=== PATIENT | female | born 1980 | race Caucasian/White ===

== ENCOUNTER 2017-05-25 11:22 | Inpatient (IN) | payer BC ==
[~2017-05-25] VITALS: Ht 154.9 cm; Wt 101.4 kg
--- NOTE | ~2017-05-25 | DS ---
PATIENT'S NAME: ADA HERNANDEZ [facility] AGE: 37 Y [address] ROOM: [place] [address] LOCATION: GOBS ADMIT DATE: 05/25/2017 Discharge Summary DISCHARGE DATE: 05/28/2017 FAMILY PHYSICIAN: Lucila Durham MD ATTENDING PHYSICIAN: Elsie Garcia DISCHARGE DIAGNOSES: 1. Intrauterine at 36 weeks. 2. Twins. 3. Preeclampsia. PROCEDURES: Spontaneous vaginal delivery x2 with the second-degree laceration, magnesium sulphate prophylaxis. REASON FOR ADMISSION: This is a patient who presents at 35 weeks 6 days, vertex-vertex with preeclampsia in the office. She was brought to the Labor and Delivery for induction. We gave her Celestone in the morning and then brought her to Labor and Delivery. She had Pitocin for induction. She went on and delivered by spontaneous vaginal delivery x2. She delivered twin A baby girl 5 pounds 2 ounces and then the second baby girl 3 pounds 14 ounces. Both babies went to the NICU. Following her procedure, her labs remained stable. She stayed on the magnesium sulphate for 1 day and then the patient went home on the second day following vaginal delivery. The patient will follow up with Dr. Garcia in 6 weeks' time. I will send her home on Motrin and Percocet for pain. MD JAYDE NUÑEZP/kiaral /[id number] d: 06/10/17 0558 t: 07/06/17 0857, DISCHARGE SUMMARY
--- NOTE | ~2017-05-25 | OR ---
PATIENT'S NAME: ADA HERNANDEZ [facility] AGE: 37 Y [address] ROOM: [address] [address] LOCATION: GOBS ADMIT DATE: 05/25/2017 OR/Procedure Report DISCHARGE DATE: FAMILY PHYSICIAN: Lucila Durham MD ATTENDING PHYSICIAN: Elsie Garcia SURGEON: Elsie Garcia MD FIELD INSTALLATION TECHNICIAN: DATE OF PROCEDURE: 05/26/2017 HISTORY OF PRESENT ILLNESS: This is a 37-year-old 4, para 2-0-0-2 who presents with a twin gestation due 06/23/2017. She presents at 35 weeks, 6 days with preeclampsia diagnosed in the office. I had given her one dose of Celestone in the morning, brought her to Labor and Delivery, and most of her pressures were 150s to 160s/70s to 90s. Therefore, decision was made to just go ahead and induce, she was 2 cm, 50%, -2 station. DETAILS OF THE PROCEDURE: Pitocin was begun and reached a maximum of 13 milliunits per minute. She progressed to 4 cm. She was on magnesium 4 g bolus and 2 g an hour. After the labor epidural, she had lower blood pressures for her and mostly twin B was affected with some variables and some late decelerations. Once the blood pressure was corrected, heart tones became reassuring again. The Pitocin was stopped for awhile. She then had Pitocin restarted and again reached a maximum of 9 milliunits per minute. When she got to 4 cm, -2 station, assisted rupture membranes of twin A were performed. She progressed on to complete with stable heart tones for both babies. She began pushing and delivered twin A over a second-degree laceration. Shoulders and body were easily delivered. Baby girl was placed on maternal abdomen and her short cord was doubly clamped and cut. She weighed 5 pounds, 2 ounces. Twin B is coming down vertex so I did bladder rest through a few contractions as the vertex was still high. heart tones showed minimal variability for twin B and some variable decelerations with minimal variability, but once the head was down to a safe spot, I did perform assisted rupture of membranes and she only pushed through a couple of contractions at that point. She pushed and delivered spontaneously. She delivered the vertex over the second-degree laceration. Shoulders and body are easily delivered. Baby girl, has a short cord, but it was placed temporarily on the maternal abdomen. Cord was doubly clamped and cut and she is handed off to the warmer. She weighed 3 pounds, 14 ounces. She was taken back to the NICU along with her sister for observation. Cord blood samples were collected and I collected an arterial cord pH on twin B 7.12 with the pH and base excess -13. Both have a 3-vessel cord. The placenta was delivered spontaneously and intact. Twin B's placenta is obviously smaller. The placentas were fused and there is an accessory lobe for twin B. I did a manual exploration of the uterus and felt to have no more membranes or placenta tissue. The uterus was clamping down nicely with PATIENT'S NAME: ADA HERNANDEZ [facility] AGE: 37 Y [address] ROOM: [place] [address] LOCATION: [facility] ADMIT DATE: 05/25/2017 OR/Procedure Report DISCHARGE DATE: FAMILY PHYSICIAN: Lucila Durham MD ATTENDING PHYSICIAN: Elsie Garcia. Cervix and vagina are intact. The second-degree lacerations was repaired in the usual fashion with 2-0 chromic. The patient tolerated the procedure well. She is doing well in recovery and her babies are being observed in the NICU. MD ELHAM NUÑEZ/marianne /[id number] d: 05/26/17 0525 t: 05/27/17 0402, OPERATIVE SUMMARY
[2017-05-25 12:25] LABS: ALBUMIN 2.4 gm/dL (3.5-5.0); ANION GAP 11.7 (10.0-19.0); CALCIUM 8.7 mg/dL (8.5-10.5); CREATININE 0.6 mg/dL (0.5-1.1); POTASSIUM 3.7 mMol/L (3.7-5.1); TOTAL PROTEIN 6.7 g/dL (6.0-8.4)
[2017-05-25 12:26] LABS: TOTAL BILIRUBIN 0.5 mg/dL (0.0-1.5)
[2017-05-25 12:27] LABS: BASOPHIL % 0.1 %; EOSINOPHIL % 0.3 %; HEMATOCRIT 37.7 % (33.0-46.0); HEMOGLOBIN 12.4 g/dL (11.0-15.0); IMMATURE GRANULOCYTE % 0.5 %; LYMPHOCYTE # 1.1 K/uL (0.8-4.0); LYMPHOCYTE % 12.5 %; MCH 28.6 pg (27.0-34.0); MCHC 32.9 gm/dL (32.0-36.5); MCV 86.9 fl (83.0-98.0); MONOCYTE # 0.5 K/uL (0.0-1.0); MPV 9.6 fl (9.4-12.4); NEUTROPHIL # (ANC) 7.1 K/uL (1.8-7.8); NEUTROPHIL % 80.6 %; NRBC % 0 /100WBC (0-0.00); RBC 4.34 M/uL (3.50-5.50); RDW-CV 13.1 % (11.9-14.6); WBC 8.9 K/uL (4.0-11.0)
[2017-05-25 12:31] LABS: PLATELET COUNT 307 K/uL (150-450)
[2017-05-25] MEDS ORDERED: PRENATAL 1+1)(P1 TAB PO (12:34)
[2017-05-25] MEDS ORDERED: ZANTAC (NON-FO150 MG PO (12:35)
[2017-05-25] MEDS ORDERED: FOLIC ACID1 MG PO (12:35)
[2017-05-25] MEDS ORDERED: OSCAL500 MG (12:36)
[2017-05-25] MEDS ORDERED: CRANBERRY200 MG (12:37)
--- NOTE | 2017-05-25 17:19 | NUR ---
05/25/17 I&0 Inserted under Taryn Hollis Rn name in computer and was inserted by Leander Potter pts Rn post acute care nurse.
--- NOTE | 2017-05-25 18:00 | NUR ---
05/25/17: Bp's 140's/70's-180's/80's. Iv Magnesium started @ 1502,Bilateral patellar reflexes 2+.RESP 17-20. afeb. Twin fhr's wnl. Fhr accels w/ both ltv moderate. Iv PItocin started and will be on 11 mu/min @ 1815. Platelets 300's. Will want labor epidural. 3 cms/60/-2. Twin A vertex less ballotable.
[2017-05-26 04:00] LABS: BICARBONATE 16.8 mmol/L (18.0-23.0); PCO2 52 mmHg (35-45); PO2 17 mmHg (80-90)
--- NOTE | 2017-05-26 14:54 | NUR ---
Met with mom at bedside today. Introduced myself and explained my role with the CM department. Let mom know that I also cover the NICU so I will be following the babies while they are there. Mom states they have all the necessary items for the twins at home. She has two other children and they are going to spend time at the grandparents until the twins are discharged. Mom will likely discharge on Monday. Room at the [facility] was reserved with Rosa in [facility] Admissions starting on MondayMay 28 through June 05. No other needs for the family at this time. Will continue to follow and offer supports as needed.
--- NOTE | 2017-05-27 04:53 | NUR ---
Significant Event: Mag off at 0300, IV saline locked. Breast pumped last at 0300; to NICU per W/C. Motrin last at 2200; tylenol last at 0400 Follow up:
[2017-05-27 05:18] LABS: BASOPHIL % 0.2 %; EOSINOPHIL # 0.1 K/uL (0.0-0.5); EOSINOPHIL % 0.5 %; HEMOGLOBIN 9.1 g/dL (11.0-15.0); IMMATURE GRANULOCYTE # 0.1 K/uL (0.0-0.3); IMMATURE GRANULOCYTE % 0.6 %; LYMPHOCYTE # 2.3 K/uL (0.8-4.0); LYMPHOCYTE % 18.3 %; MCV 87.7 fl (83.0-98.0); MONOCYTE # 1.1 K/uL (0.0-1.0); MPV 9.6 fl (9.4-12.4); NEUTROPHIL # (ANC) 8.8 K/uL (1.8-7.8); NEUTROPHIL % 71.4 %; NRBC % 0 /100WBC (0-0.00); RDW-CV 13.4 % (11.9-14.6); WBC 12.3 K/uL (4.0-11.0)
[2017-05-27 05:23] LABS: HEMATOCRIT 27.1 % (33.0-46.0); MCH 29.4 pg (27.0-34.0); MCHC 33.6 gm/dL (32.0-36.5); PLATELET COUNT 244 K/uL (150-450); RBC 3.09 M/uL (3.50-5.50)
--- NOTE | 2017-05-28 05:01 | NUR ---
VSS. FUNDUS FIRM, EVEN 1 DOWN. SMALL FLOW. MOTRIN LAST AT 0219, TYLENOL LAST AT 1943. PATIENT PUMPING BREAST MILK, VISITS NICU FREQUENTLY.
[2017-05-28] MEDS ORDERED: FEOSOL325 MG PO (12:24)
[2017-05-28] MEDS ORDERED: DERMOPLAST SPRA56 GM TOP (12:24)
[2017-05-28] MEDS ORDERED: MOTRIN800 MG PO (12:25)
[2017-05-28] MEDS ORDERED: PERCOCET 5-3251 EACH PO (12:25)
== END 2017-05-28 18:44 | disposition disaster alternative care site (69) | DRG 775 ==
LOC: GOBM 11:22 → GOBS 11:22 → GOBM 11:23 → GOBS 05-28 18:44
PROVIDERS: ADMIT Obstetrics & Gynecology
DX: O14.94 Unspecified pre-eclampsia, complicating childbirth (principal); O30.003 Twin pregnancy, unspecified number of placenta and unspecified number of amniotic sacs, third trimester; O26.53 Maternal hypotension syndrome, third trimester; O76 Abnormality in fetal heart rate and rhythm complicating labor and delivery; O70.1 Second degree perineal laceration during delivery; Z88.0 Allergy status to penicillin; Z3A.36 36 weeks gestation of pregnancy; Z37.2 Twins, both liveborn
CPT/HCPCS: J2001; J2590; J3010; J3475; J7120